=== PATIENT | female | born 1995 | race Caucasian/White ===

== ENCOUNTER 2016-09-09 19:08 | Emergency (ER) | payer BC ==
[~2016-09-09] VITALS: Ht 157.5 cm; Wt 88.0 kg
[~2016-09-09 19:08] MED LIST: ALBU8I INH; AUGM875T PO; CLON1TAB PO; IBUP800T23 PO; MELA1CAP PO; METH4PAK PO; MUCI600T PO; TRI-TAB3 PO; ZALE10 PO; ZOLO50TA PO
[2016-09-09 19:44] VITALS: PULSE 134; RESP 21; TEMP 98.4; O2SAT 96
[2016-09-09] MEDS ORDERED: ACETAMINOPHEN/CODEINE ELIX 120 MG/12 MG/5 ML CUP PO ONE (19:45)
--- NOTE | 2016-09-09 19:46 | PD ---
HPI Chief Complaint: shortness of breath Time Seen by Provider: 19:44 Travel History International Travel<30 days: No Contact w/Intl Traveler<30days: No History of Present Illness HPI This is a 20-year-old female who has a history of severe eczema and asthma who presents to the emergency department with 2 days of increasing shortness of breath, constant, moderate severity, worse with exertion associated with a nonproductive cough. She denies any fevers or chills. She has never been hospitalized for her asthma. She went to an urgent care where they called EMS and transported her here. She received 125 of Solu-Medrol IM and 2 bronchodilator treatments prior to arrival. Her work of breathing reportedly improved per EMS. PFSH Past Medical History Arthritis: Yes (RA) Asthma: Yes Autoimmune Disease: Yes (being tested for autoimmune/ family hx) Depression: Yes Cardiovascular Problems: No Diminished Hearing: Yes Genitourinary: No Musculoskeletal: No Neurologic: No Psychiatric: Yes (adhd, bipolar) Respiratory: Yes (ASTHMA ) Past Surgical History Oral Surgery: Yes (t&a age 3) Tonsillectomy: Yes Other Surgery: Yes Social History Alcohol Use: No Tobacco Use: Yes (0.5 PPD) Substance Use: No Allergies-Medications (Allergen,Severity, Reaction): Coded Allergies: Peanut (Verified Allergy, Severe, 09/09/16) Pork (Verified Allergy, Severe, 09/09/16) Seafood (Verified Allergy, Severe, 09/09/16) Sulfa (Verified Allergy, Severe, 09/09/16) Reported Meds & Prescriptions Reported Meds & Active Scripts Active Reported Sonata (Zaleplon) 10 Mg Cap 10 Mg PO HS PRN Ativan (Lorazepam) 0.5 Mg Tab 0.5 Mg PO DAILY PRN Klonopin (Clonazepam) 0.5 Mg Tab 0.1 Mg PO BID PRN Cipro (Ciprofloxacin HCl) 500 Mg Tab 500 Mg PO BID Trinessa (Norgestimate-Ethinyl Estradiol) 0.18/0.215/0.25 mg-35 Mcg Tab 1 Tab PO DAILY Zoloft (Sertraline HCl) 100 Mg Tab 100 Mg PO BID Albuterol Neb (Albuterol Sulfate) 2.5 Mg/0.5 Ml Neb 2.5 Mg NEB Q4HR NEB PRN Note: The Albuterol Sulfate Inhalation Solution is concentrated and must be diluted. Read complete instructions carefully before using. Ventolin Hfa 18 GM Inh (Albuterol Sulfate) 90 Mcg/Act Aer 2 Puff INH Q4H PRN Review of Systems Except as stated in HPI: all other systems reviewed are Neg Physical Exam Narrative GENERAL:Well appearing, no acute distress SKIN: Dry excoriated skin over the bilateral upper and lower extremities. HEAD: Atraumatic. Normocephalic. EYES: Pupils equal and round. No injection or drainage. ENT: Moist mucous membranes NECK: Trachea midline. CARDIOVASCULAR: Regular rate and rhythm. No murmur appreciated. RESPIRATORY: Diffuse wheezing with moderate air movement, speaking full sentences GASTROINTESTINAL: Abdomen soft, non-tender, nondistended. MUSCULOSKELETAL: No obvious deformities. NEUROLOGICAL: Awake and alert. No obvious cranial nerve deficits. Moving all extremities. PSYCHIATRIC: Appropriate mood and affect; insight and judgment normal. Data Data Last Documented VS Vital Signs Date Time Temp Pulse Resp B/P Pulse Ox O2 Delivery O2 Flow Rate FiO2 09/09/16 19:44 98.4 134 21 96 Orders Albuterol Neb (Albuterol Neb) (09/09/16 19:45) Chest, Single Ap (09/09/16 ) Acetamin-Codeine 120-12 Liq (Tylenol - C (09/09/16 19:45) Diet Regular Basic (09/10/16 Dinner) MDM Medical Decision Making Medical Screen Exam Complete: Yes Emergency Medical Condition: Yes Interpretation(s) Afebrile, tachycardic Chest x-ray: No acute process Differential Diagnosis Bronchitis, acute asthma exacerbation, pneumonia, spontaneous pneumothorax Narrative Course This is a 20-year-old female who presents to the emergency department with increasing shortness of breath over the past 2 days. She has a history of asthma. She now reports that she is bringing up some green sputum. She was administered Solu-Medrol and albuterol prior to arrival. She was given an additional 3 nebulizer treatments in the emergency department. Chest x-ray was reassuring. On reassessment she is unlabored and speaking full sentences. Patient was offered observation. Her mom is a nurse and they feel comfortable managing this at home. She was prescribed prednisone, bronchodilators and azithromycin in the setting of likely acute bronchitis. Diagnosis Primary Impression: Acute bronchitis with asthma with acute exacerbation Patient Instructions: General Instructions Additional Instructions: If you develop severe shortness of breath, chest pain, or difficulty breathing return to the emergency department. Use albuterol every 4 hours for the next 2 days. Then use as needed for wheezing. Complete your course of steroids. Complete your course of antibiotics. Follow up with your primary care physician in 2-3 days if your symptoms have not improved. Med/Other Pt SpecificInfo: Prescription(s) given Scripts Albuterol Neb 2.5 Mg/3 Ml Neb2.5 Mg NEB Q4HR NEB PRN (SHORTNESS OF BREATH) #60 NEBULE Ref 0 Prov:Beatriz Thompson MD 09/09/16 Azithromycin 250 Mg [id number] Mg PO DIRECTED #6 TAB Take 2 tabs (500 mg) on day 1 then 1 tab daily x 4 days. Prov:Beatriz Thompson MD 09/09/16 Prednisone 20 Mg Tab40 Mg PO DAILY 5 Days Prov:Beatriz Thompson MD 09/09/16 Disposition: 01 DISCHARGE HOME Condition: Stable Beatriz Thompson MD Sep 09, 2016 19:46
[2016-09-09] MEDS ORDERED: ALBU.5I NEB (19:58)
[2016-09-09] MEDS ORDERED: VENTAER INH (19:58)
[2016-09-09] MEDS ORDERED: LORA-392 PO (19:58)
[2016-09-09] MEDS ORDERED: TRINTAB7 PO (19:58)
[2016-09-09] MEDS ORDERED: CIPR-9 PO (19:58)
[2016-09-09] MEDS ORDERED: ZOLO100T PO (19:58)
[2016-09-09] MEDS ORDERED: SONA10CA5 PO (19:58)
[2016-09-09] MEDS ORDERED: CLON.5 PO (19:58)
[2016-09-09] MEDS: RESP: ALBUTEROL 2.5 MG/3 ML NEB (SCH) INH ×2 (20:06→20:07)
--- NOTE | 2016-09-09 20:45 | RADRPT ---
EXAM DATE/TIME: 09/09/2016 20:00 [facility] COMPARISON: CHEST SINGLE AP, May 17, 2014, 13:24. INDICATIONS : Asthma related shortness of breath and chest pain. MEDICAL HISTORY : Asthma. SURGICAL HISTORY : None. ENCOUNTER: Initial ACUITY: 2 days PAIN SCORE: 5/10 LOCATION: Bilateral chest FINDINGS: A single view of the chest demonstrates the lungs to be symmetrically aerated without evidence of mas s, infiltrate or effusion. The cardiomediastinal contours are unremarkable. Osseous structures are intact. CONCLUSION: Normal examination. Scooby Garza MD on September 09, 2016 at 20:43 Board Certified Radiologist. This report was verified electronically.
[2016-09-09] MEDS ORDERED: PRED20 PO (22:10)
[2016-09-09] MEDS ORDERED: AZIT250T3 PO (22:10)
[2016-09-09] MEDS ORDERED: ALBU0.08 NEB (22:10)
[2016-09-09 22:42] VITALS: BP 120/85
== END 2016-09-09 22:43 | disposition home or self-care (01) ==
LOC: NEPC 19:08
DX: J20.9 Acute bronchitis, unspecified (principal); J45.901 Unspecified asthma with (acute) exacerbation; L30.9 Dermatitis, unspecified; J45.909 Unspecified asthma, uncomplicated; F17.210 Nicotine dependence, cigarettes, uncomplicated
CPT/HCPCS: 71010; 94640; 94664; 99283; J7613